=== PATIENT | male | born 1960 | race Caucasian/White ===

== ENCOUNTER → 2019-09-21 | Outpatient (CLI) | payer OTHER | END | disposition home or self-care (01) | LOC: CVU 07:20 | PROVIDERS: ATTEND Internal Medicine Cardiovascular Disease | DX: I08.1 Rheumatic disorders of both mitral and tricuspid valves (principal); I11.9 Hypertensive heart disease without heart failure; I48.0 Paroxysmal atrial fibrillation | CPT/HCPCS: C8929; Q9957 ==

== ENCOUNTER 2019-11-21 09:09 | Day surgery (SDC) | payer OTHER ==
[~2019-11-21] VITALS: Ht 177.8 cm; Wt 144.1 kg
[2019-11-21] MEDS ORDERED: LEVO25TA4 PO (09:59)
[2019-11-21] MEDS ORDERED: APIX5TAB PO (09:59)
[2019-11-21] MEDS ORDERED: OMEP-110 PO (09:59)
[2019-11-21] MEDS ORDERED: METO-95 PO (09:59)
[2019-11-21] MEDS ORDERED: HYDR50TA3 PO (09:59)
[2019-11-21] MEDS ORDERED: GLUCOSAMINE HCL PO (09:59)
[2019-11-21] MEDS ORDERED: Calcium Citrate PO (09:59)
[2019-11-21] MEDS ORDERED: SACU1TAB PO (09:59)
[2019-11-21 10:19] LABS: BASOPHILS % (AUTO) 0 % (0-1); EOSINOPHILS % (AUTO) 1 % (1-7); LYMPHOCYTES % (AUTO) 20 % (22-44); MEAN CORPUSCULAR HGB CONC 33.9 g/dL (33.2-36.2); MEAN PLATELET VOLUME 7.3 fL (7.4-10.4); MONOCYTES % (AUTO) 7 % (2-9); NEUTROPHILS % (AUTO) 71 % (42-75); PLATELET COUNT 124 x10^3/uL (130-400); RED BLOOD COUNT 4.81 x10^6/uL (4.38-5.82); RED CELL DISTRIBUTION WIDTH 16.8 % (9.4-14.8)
[2019-11-21 10:25] LABS: MD NO
[2019-11-21 10:30] LABS: ANION GAP 6 mmol/L (5-15); CHLORIDE 109 mmol/L (98-107)
[2019-11-21] MEDS ORDERED: PROPOFOL 10 MG/ML, 20ML ONE (12:12)
== END 2019-11-21 13:00 | disposition home or self-care (01) ==
LOC: CACL 09:09
PROVIDERS: ATTEND Internal Medicine Cardiovascular Disease
DX: I48.19 Other persistent atrial fibrillation (principal); I42.9 Cardiomyopathy, unspecified; I10 Essential (primary) hypertension; E66.3 Overweight; Z68.42 Body mass index [BMI] 45.0-49.9, adult; Z79.01 Long term (current) use of anticoagulants; Z79.82 Long term (current) use of aspirin; Z79.890 Hormone replacement therapy; Z79.899 Other long term (current) drug therapy
CPT/HCPCS: 36415; 80048; 85025; 92960; J2704

== ENCOUNTER 2020-01-15 12:33 | Outpatient (CLI) | payer OTHER ==
[~2020-01-15 12:33] MED LIST: APIX5TAB PO; Calcium Citrate PO; GLUCOSAMINE HCL PO; HYDR50TA3 PO; LEVO25TA4 PO; METO-95 PO; OMEP-110 PO; REGADENOSON 0.4 MG/5 ML SYRINGE ONE; SACU1TAB PO
== END 2020-01-16 23:59 | disposition home or self-care (01) ==
LOC: CFH 12:33
PROVIDERS: ATTEND Registered Nurse
DX: I48.91 Unspecified atrial fibrillation (principal); I42.9 Cardiomyopathy, unspecified
CPT/HCPCS: 78452; 93017; A9502; J2785

== ENCOUNTER → 2020-04-03 | Outpatient (CLI) | payer OTHER ==
[~2020-04-03] MED LIST changes: -HYDR50TA3 PO; +HYDR50TA6 PO; -REGADENOSON 0.4 MG/5 ML SYRINGE ONE
[2020-04-03 14:28] LABS: BASOPHILS % (AUTO) 1 % (0-1); EOSINOPHILS % (AUTO) 2 % (1-7); LYMPHOCYTES % (AUTO) 22 % (22-44); MD NO; MEAN CORPUSCULAR HEMOGLOBIN 35.8 pg (27.5-34.5); MEAN CORPUSCULAR HGB CONC 34.5 g/dL (33.2-36.2); MEAN PLATELET VOLUME 7.5 fL (7.4-10.4); MONOCYTES % (AUTO) 7 % (2-9); NEUTROPHILS % (AUTO) 70 % (42-75); PLATELET COUNT 176 x10^3/uL (130-400); RED CELL DISTRIBUTION WIDTH 13.5 % (9.4-14.8)
[2020-04-03 14:37] LABS: INTERNATIONAL NORMALIZED RATIO 1.14 (0.93-1.1); PROTHROMBIN TIME 12.2 Seconds (9.6-11.5)
[2020-04-03 14:38] LABS: ANION GAP 6 mmol/L (5-15); CALCIUM 8.4 mg/dL (8.5-10.1); CHLORIDE 106 mmol/L (98-107)
[2020-04-03 14:39] LABS: CREATININE 1.34 mg/dL (0.7-1.3)
== END | disposition home or self-care (01) ==
LOC: STAR 13:44
PROVIDERS: ATTEND Family Medicine
DX: I11.0 Hypertensive heart disease with heart failure (principal); I34.0 Nonrheumatic mitral (valve) insufficiency; I42.0 Dilated cardiomyopathy; I42.9 Cardiomyopathy, unspecified; I48.0 Paroxysmal atrial fibrillation; I48.11 Longstanding persistent atrial fibrillation; I48.91 Unspecified atrial fibrillation; I50.22 Chronic systolic (congestive) heart failure; Z20.822 Contact with and (suspected) exposure to COVID-19
CPT/HCPCS: 80048; 85025; 85610; 85730; 87635

== ENCOUNTER → 2020-04-04 | Outpatient (CLI) | payer OTHER | END | disposition home or self-care (01) | LOC: CFH 09:35 | PROVIDERS: ATTEND Internal Medicine Clinical Cardiac Electrophysiology | DX: I48.11 Longstanding persistent atrial fibrillation (principal) | CPT/HCPCS: 71046; 75572 ==

== ENCOUNTER 2020-04-08 10:58 | Observation (INO) | payer OTHER ==
[~2020-04-08] VITALS: Ht 177.8 cm; Wt 157.0 kg
[2020-04-08] MEDS ORDERED: MIDAZOLAM 1 MG/ML, 2ML ONE (11:40)
[2020-04-08] MEDS ORDERED: FENTANYL PF 250 MCG/5ML ONE (11:40)
[2020-04-08] MEDS ORDERED: SUCCINYLCHOLINE 20 MG/ML, 10ML ONE (11:43)
[2020-04-08] MEDS ORDERED: MULT-658 PO (12:00)
[2020-04-08] MEDS ORDERED: ACET325C6 PO (12:00)
[2020-04-08] MEDS ORDERED: SODIUM CHLORIDE 0.9% 1,000 ML IV SCH ×2 (12:00)
[2020-04-08 12:02] VITALS: BP 141/96
[2020-04-08] MEDS ORDERED: LIDOCAINE 2%, 20ML ONE (12:41)
[2020-04-08] MEDS ORDERED: DEXAMETHASONE 4 MG/ML, 1ML ONE (12:43)
[2020-04-08] MEDS ORDERED: PROPOFOL 10 MG/ML, 20ML ONE (12:43)
[2020-04-08] MEDS ORDERED: ONDANSETRON 2MG/ML, 2ML ONE (12:43)
[2020-04-08] MEDS ORDERED: CEFAZOLIN 1,000 MG ONE ×2 (13:08)
[2020-04-08] MEDS ORDERED: HEPARIN 1,000 UNITS/ML, 10ML ONE ×4 (14:07→16:44)
[2020-04-08] MEDS ORDERED: ROCURONIUM 10MG/ML,5ML ONE (16:44)
[2020-04-08] MEDS ORDERED: FENTANYL PF 100 MCG/2ML ONE ×2 (17:54→19:47)
[2020-04-08] MEDS ORDERED: FUROSEMIDE 40 MG/4 ML ONE (19:18)
[2020-04-08] MEDS ORDERED: APIXABAN 5 MG TABLET ONE (19:45)
[2020-04-08] MEDS ORDERED: MIDAZOLAM 1 MG/ML, 2ML IV PRN (20:00)
[2020-04-08] MEDS ORDERED: EPHEDRINE 50 MG/ML, 1ML IVPush PRN (20:00)
[2020-04-08] MEDS ORDERED: OXYcodone 5 MG/5 ML ORAL.SOL UDC PO PRN (20:00)
[2020-04-08] MEDS ORDERED: ONDANSETRON 2MG/ML, 2ML IVPush PRN (20:00)
[2020-04-08] MEDS ORDERED: HYDROmorphone 1 MG/ML, 1ML INJ IVPush PRN (20:00)
[2020-04-08] MEDS ORDERED: PROMETHAZINE 12.5 MG SUPP PR PRN (20:00)
[2020-04-08] MEDS ORDERED: DIPHENHYDRAMINE 50 MG/ML, 1ML IVPush PRN (20:00)
[2020-04-08] MEDS ORDERED: FENTANYL PF 100 MCG/2ML IV PRN (20:00)
[2020-04-08] MEDS ORDERED: DIAZEPAM 5 MG/ML, 2ML IVPush PRN (20:00)
[2020-04-08] MEDS ORDERED: LABETALOL 5MG/ML, 20ML IV PRN (20:00)
[2020-04-08] MEDS ORDERED: ACETAMINOPHEN 325 MG TABLET PO PRN ×2 (20:00→23:00)
[2020-04-08] MEDS ORDERED: PROMETHAZINE 25 MG/ML, 1ML IVPush PRN (20:00)
[2020-04-08] MEDS ORDERED: hydrALAzine 20 MG/ML, 1ML IV PRN (20:00)
[2020-04-08] MEDS ORDERED: ALBUTEROL SULFATE 2.5 MG/3 ML NPPB PRN (20:00)
[2020-04-08] MEDS ORDERED: MEPERIDINE/PF 25MG/0.5ML IVPush PRN (20:00)
[2020-04-08] MEDS: APIXABAN 5 MG TABLET PO SCH ×2 (20:02→23:30)
[2020-04-08] MEDS ORDERED: OXYcodone 5 MG/5 ML ORAL.SOL UDC ONE (20:23)
[2020-04-08 21:00] VITALS: BP 120/83
[2020-04-08 22:13] VITALS: BP 106/76
[2020-04-08] MEDS: SACUBITRIL/VALSARTAN 24MG-26MG TAB PO SCH (22:14)
[2020-04-08] MEDS: AMIODARONE 200 MG TABLET PO SCH (22:14)
[2020-04-08] MEDS: COLCHICINE 0.6 MG CAPSULE PO SCH (22:14)
[2020-04-09 02:35] VITALS: BP 93/65
[2020-04-09] MEDS ORDERED: OMEPRAZOLE 20 MG CAPSULE.DR PO SCH (06:00)
[2020-04-09] MEDS ORDERED: METOPROLOL SUCCINATE 50 MG TAB.ER.24H PO SCH (06:00)
[2020-04-09 06:57] VITALS: BP 108/75
[2020-04-09] MEDS: COLCHICINE 0.6 MG CAPSULE PO SCH (08:19)
[2020-04-09] MEDS: AMIODARONE 200 MG TABLET PO SCH (08:19)
[2020-04-09] MEDS: SACUBITRIL/VALSARTAN 24MG-26MG TAB PO SCH (08:19)
[2020-04-09] MEDS: APIXABAN 5 MG TABLET PO SCH (08:19)
[2020-04-09] MEDS ORDERED: MAGNESIUM OXIDE 400 MG TABLET PO ONE (09:00)
[2020-04-09] MEDS ORDERED: AMIO200T42 PO (09:27)
[2020-04-09] MEDS ORDERED: COLC0.6C3 PO (09:27)
== END 2020-04-09 12:20 | disposition home or self-care (01) ==
LOC: CACL 10:58 → 5SO 19:20 → DCLOUNGE 04-09 11:34
PROVIDERS: ADMIT Internal Medicine Clinical Cardiac Electrophysiology; ATTEND Internal Medicine Clinical Cardiac Electrophysiology
DX: I48.0 Paroxysmal atrial fibrillation (principal); I48.11 Longstanding persistent atrial fibrillation; D68.69 Other thrombophilia; G47.33 Obstructive sleep apnea (adult) (pediatric); I42.0 Dilated cardiomyopathy; I11.0 Hypertensive heart disease with heart failure; I50.42 Chronic combined systolic (congestive) and diastolic (congestive) heart failure; E66.01 Morbid (severe) obesity due to excess calories; E03.9 Hypothyroidism, unspecified; F10.10 Alcohol abuse, uncomplicated; Z79.01 Long term (current) use of anticoagulants; Z79.899 Other long term (current) drug therapy; Z98.84 Bariatric surgery status
CPT/HCPCS: 85347; 93005; 93312; 93321; 93325; 93613; 93656; 93657; 93662; C1730; C1732; C1759; C1766; C1893; C1894; C8929; G0378; J0330; J0690; J1100; J1644; J1940; J2250; J2405; J2704; J3010; J3490; Q9957

== ENCOUNTER 2020-05-29 10:31 | Day surgery (SDC) | payer OTHER ==
[~2020-05-29 10:31] MED LIST changes: +ACET325C6 PO; +AMIO200T42 PO; +COLC0.6C3 PO; +MULT-658 PO
== END 2020-05-29 12:44 | disposition home or self-care (01) ==
LOC: CACL 10:31
PROVIDERS: ATTEND Internal Medicine Clinical Cardiac Electrophysiology
DX: I48.91 Unspecified atrial fibrillation (principal); I42.0 Dilated cardiomyopathy; G47.33 Obstructive sleep apnea (adult) (pediatric); I11.0 Hypertensive heart disease with heart failure; I50.42 Chronic combined systolic (congestive) and diastolic (congestive) heart failure; Z79.01 Long term (current) use of anticoagulants; Z79.899 Other long term (current) drug therapy; Z98.890 Other specified postprocedural states
CPT/HCPCS: 93005